=== PATIENT | female | born 1960 | race Caucasian/White ===

== ENCOUNTER 2021-01-15 15:06 | Outpatient (REF) | payer OTHER, SELFPAY ==
[2021-01-15 15:29] LABS: COVID-19 Test Positive (Negative)
== END 2021-01-15 15:07 | disposition home or self-care (01) ==
LOC: HO.LAB 15:06
PROVIDERS: Visit Provider Internal Medicine
DX: Z20.822 Contact with and (suspected) exposure to COVID-19 (principal)
CPT/HCPCS: 36415; 87635; C9803

== ENCOUNTER 2022-12-15 14:00 | Outpatient (RCR) | payer OTHER, SELFPAY ==
[2022-01-28 08:32] VITALS: BP 142/80; BP 150/70; BMI 32.0
[2022-11-26 07:04] VITALS: BP 143/67; PULSE 69; O2SAT 98
== END 2023-01-13 13:28 | disposition home or self-care (01) ==
LOC: HO.PT 14:00
PROVIDERS: PCP Physician Assistant; Visit Provider Physician Assistant
DX: I63.10 Cerebral infarction due to embolism of unspecified precerebral artery (principal); G81.94 Hemiplegia, unspecified affecting left nondominant side
CPT/HCPCS: 97110; 97112; 97116; 97162; 97530

== ENCOUNTER 2023-05-20 18:47 | Inpatient (IN) | payer MEDICAID, SELFPAY ==
[2022-01-28 08:32] VITALS: BP 142/80; BP 150/70; BMI 32.0
--- NOTE | ~2023-05-20 | MR_ITS ---
EXAMINATION: MRI OF THE BRAIN WITHOUT CONTRAST CLINICAL INFORMATION: Stroke. COMPARISON: CTA of the head and neck 05/20/2023. TECHNIQUE: MRI of the brain was obtained using routine sequences without contrast. Some sequences are degraded by patient motion artifact. FINDINGS: There is an area of increased diffusion signal adjacent to the posterior body of the right lateral ventricle which has surrounding hyperintense ADC map and T2 signal, consistent with a subacute to chronic infarct. There is similar signal in the right precentral gyrus. A large area of gliosis and encephalomalacia is noted in the right periventricular white matter and in the right frontoparietal lobes, consistent with sequelae of a chronic infarct. No mass effect or midline shift is seen. The ventricles and sulci commensurately prominent consistent with diffuse volume loss. There is an area of gliosis in the posteromedial left occipital lobe consistent with sequelae of a chronic infarct. In addition, there are multiple scattered foci of hyperintense T2 and FLAIR signal in the periventricular and subcortical white matter, and in the shelbi consistent with sequelae of chronic microvascular ischemic disease. There are chronic infarcts in the bilateral cerebellar hemispheres. No extra-axial fluid collections are seen. The brainstem and cerebellum are normal. No pathologic magnetic susceptibility artifact is identified on the severely motion degraded gradient refocused acquisition. The craniovertebral junction and marrow signal are normal. There is a partially empty sella. The major intracranial flow-voids at the level of the [place] are preserved. The dural venous sinus flow-voids are maintained. There have been bilateral lens extractions. The mastoid air cells and paranasal sinuses are well-aerated. MR/MR head/brain wo con IMPRESSION: 1. There are sequelae of subacute to chronic infarcts in the right periventricular white matter and precentral gyrus as described above. There is diffuse volume loss and there are sequelae of chronic microvascular ischemic changes. There are chronic infarcts in the left occipital lobe and in the bilateral cerebellar hemispheres. 2. There are no acute bleeds or new territorial infarcts. No masses are demonstrated.
--- NOTE | ~2023-05-20 | CT_ITS ---
EXAMINATION: CT ANGIOGRAM HEAD CT ANGIOGRAM NECK CLINICAL INFORMATION: Right-sided facial droop. Left-sided weakness. COMPARISON: CT head from 05/20/2023. TECHNIQUE: Initial noncontrast chief controller imaging of the head and neck was performed. Comparison is made with noncontrast head CT from earlier today. Test bolus sequences followed by intravenous administration 70 mL of Omnipaque 350. Helical imaging was performed in the axial plane from the aortic arch to the skull vertex. Delayed postcontrast imaging of the head was also performed. The data was processed at the agricultural research technologist's workstation for generation of MIP sequences. Angled MIPs and volume rendered reformatted images were also generated at an offline 3D workstation. Stenoses are assessed in accordance with NASCET criteria unless otherwise indicated. This CT examination was performed using dose optimization techniques as appropriate, variously including the following: *Automated exposure control. *Adjustment of mA and/or kV according to patient size (this includes techniques or standardized protocols for targeted exams where dose is matched to indication/reason for exam; i.e. extremities or head). *Use of iterative reconstruction technique. DLP: 1432 mGy-cm FINDINGS: CT Head: There is chronic encephalomalacia within the right parietal lobe with associated volume loss. No additional loss of hamm-white matter differentiation. No evidence of acute intracranial hemorrhage. Lacunar infarct of the left central shelbi. Scattered and partially confluent hypoattenuation in the periventricular, deep white matter, and brainstem are consistent with moderate microangiopathy. The ventricles are normal in morphology and size. No evidence for obstructive hydrocephalus. No abnormal mass effect or midline shift. No extra-axial fluid collections. No pathologic intra-axial enhancement. No acute soft tissue or osseous abnormalities. Mild mucosal thickening of the paranasal sinuses. The mastoid air cells and middle ear cavities are clear. The maxillary left 2nd molar is fractured with periapical lucency. Bilateral lens extractions. CT Neck: The thyroid gland and remaining cervical soft tissues are within normal limits. [id number] multilevel degenerative spinal arthropathy of the cervical spine. CT Upper Chest: Loop recorder noted within the left anterior chest wall. The visualized lung apices and upper mediastinum are within normal limits. Neck CTA: Moderately motion limited exam. Aortic Arch: Normal contour and caliber with moderate calcific atherosclerotic disease. Classic 3 vessel branching pattern of the aortic arch. Great Vessel Origins: No significant stenosis of the branch origins. Right Common Carotid Artery: No focal stenosis or occlusion. Cervical Right Internal Carotid Artery: Calcific atherosclerotic disease of the carotid bulb and proximal internal carotid artery causes 70% stenosis of the origin of the ICA. Left Common Carotid Artery: No focal stenosis or occlusion. Cervical Left Internal Carotid Artery: Calcific atherosclerotic disease of the carotid bulb and proximal internal carotid artery causes 50% stenosis of the proximal ICA. Cervical Right Vertebral Artery: Co-dominant. Calcific atherosclerotic disease causes moderate stenosis of the origin. No additional focal stenosis or occlusion. Cervical Left Vertebral Artery: Co-dominant. Calcific atherosclerotic disease causes moderate stenosis of the origin. No additional focal stenosis or occlusion. Brain CTA: Intracranial Internal Carotid Arteries: Heavy calcific atherosclerotic disease of the intracranial internal carotid arteries without occlusion. There are mild to moderate stenosis of the para ophthalmic and super clinoid segments of the ICAs bilaterally. Right Anterior Cerebral Artery: Normal A1 segment. Normal opacification of the distal [place] segments. Left Anterior Cerebral Artery: Normal A1 segment. Normal opacification of the distal [place] segments. Anterior Communicating Artery: Normal. Right Middle Cerebral Artery: Normal M1 segment of the MCA without focal stenosis or occlusion. Normal arborization of the distal segments. Left Middle Cerebral Artery: Normal M1 segment of the MCA without focal stenosis or occlusion. Normal arborization of the distal segments. Right Vertebral Artery: Calcific atherosclerotic disease of the V4 segment without evidence of flow-limiting stenosis. The posterior inferior cerebellar artery is not well opacified; however, there is no CT evidence of acute occlusion. Left Vertebral Artery: Calcific atherosclerotic disease of the V4 segment without evidence of flow-limiting stenosis. Normal opacification of the proximal segments of the posterior inferior cerebellar artery. Basilar Artery: Normal without focal stenosis or occlusion. Normal appearance of the proximal superior cerebellar arteries. Right Posterior Cerebral Artery: Normal P1 segment. Normal opacification of the distal MEDIA AID segments. Left Posterior Cerebral Artery: Normal P1 segment. Normal opacification of the distal [employer] AID segments. Normal opacification of the superior sagittal, straight, transverse, and sigmoid sinuses. CT/CT angio head neck stroke IMPRESSION: 1. Chronic encephalomalacia within the right parietal lobe. Lacunar infarct of the left central shelbi. Moderate to extensive underlying microangiopathy and generalized cerebral volume loss. 2. No evidence of acute intracranial hemorrhage or edematous territorial infarction. 3. CTA of the head and neck without proximal occlusion. 4. Calcific atherosclerotic disease causes 70% stenosis of the origin of the right ICA. There is 50% stenosis of the origin of the left ICA. Mild to moderate calcific atherosclerotic disease of the intracranial internal carotid arteries bilaterally without evidence of additional flow-limiting stenosis. Moderate atherosclerotic stenoses of the origins of the vertebral arteries bilaterally.
--- NOTE | ~2023-05-20 | CT_ITS ---
EXAMINATION: CT HEAD WITHOUT CONTRAST CLINICAL INFORMATION: CVA. COMPARISON: CT head 12/27/2018. TECHNIQUE: Contiguous axial imaging was performed from the skull base to vertex without intravenous administration of contrast. This CT examination was performed using dose optimization techniques as appropriate, variously including the following: *Automated exposure control *Adjustment of mA and/or kV according to patient size (this includes techniques or standardized protocols for targeted exams where dose is matched to indication/reason for exam; i.e. extremities or head) *Use of iterative reconstruction technique DLP: 641 mGy-cm FINDINGS: Multiple age indeterminate hypodensities that are new compared to 12/27/2018, largest in the high right parietal lobe posterior to the central sulcus and left paramedian occipital lobe (5:39). There is suggestion of volume loss associated to the largest hypodensity in the high parietal lobe, which could indicate a chronic age. Smaller age indeterminate hypodensities in the mid shelbi (5:58) and bilateral basal ganglia No acute intracranial hemorrhage. No significant mass effect or midline shift. Small indeterminate calcifications in the region of the largest hypodensity in the parietal lobe (2:30 and 2:33), right temporal lobe (2:20) as well as subtle mineralization of the right greater than left basal ganglia. Scattered hypoattenuation in the periventricular and deep white matter are consistent with moderate microangiopathy. Proportional prominence of the ventricles and sulcal spaces. No evidence for obstructive hydrocephalus. No extra-axial fluid collections. No acute soft tissue or osseous abnormalities. Mild mucosal thickening of the left maxillary sinus. No air-fluid levels. The mastoids and middle ear cavities are clear. Bilateral lens extraction. CT/CT head for stroke IMPRESSION: 1. Multiple age indeterminate hypodensities that are new compared to 12/27/2018, largest in the high right parietal lobe and left paramedian occipital lobe. Smaller age indeterminate hypodensities in the mid shelbi and bilateral basal ganglia. Recommend further characterization with an MRI of the brain. 2. No acute intracranial hemorrhage. 3. No midline shift or evidence of obstructive hydrocephalus. 4. Background of moderate microangiopathy and generalized cerebral volume loss. This critical result was discussed with Dr. Stafford at 05/20/2023 7:21 PM and it was ascertained that the content and urgency of the report was understood at the time of direct communication.
--- NOTE | 2023-05-20 18:51 | ECG_ITS ---
Test Reason : STROKE Blood Pressure : / mmHG Vent. Rate : 088 BPM Atrial Rate : 088 BPM P-R Int : 148 ms QRS Dur : 092 ms QT Int : 370 ms P-R-T Axes : 029 018 121 degrees QTc Int : 447 ms Normal sinus rhythm Minimal voltage criteria for LVH, may be normal variant ( Eliezer product ) ST & T wave abnormality, consider lateral ischemia Abnormal ECG When compared with ECG of 23-SEP-2019 19:56, No significant change was found Referred By: Raulito Stafford Electronically Signed By:MICHAELA THAPA
--- NOTE | 2023-05-20 18:56 | ED_ITS ---
HPI - Neuro Symptoms/Deficit General Chief Complaint: Stroke Stated Complaint: L side face deficit, R side droop, dizzy Time Seen by Provider: 05/20/23 18:50 Source: patient and EMS Mode of arrival: EMS Limitations: no limitations History of Present Illness HPI Narrative: 63-year-old female with history of CVA on Coumadin typically receives her care [facility] presents with acute onset right facial droop and left-sided weakness. She does have a history of 2 previous strokes. With unclear whether she has some chronic deficits from that. Her daughter did noted at 6:10 p.m. new neuro deficits appear. At that time, EMS was contacted. Upon arrival, she is found to be hemodynamically stable with a blood sugar of 175. She was noted to have a left upper extremity tremor, left upper and lower extremity weakness and right facial droop. Patient has no evidence of aphasia. Her symptoms are described as severe. There is no clear relieving or exacerbating features. Patient denies any chest pain, shortness breath, palpitations or headaches. She does take Coumadin but she is not entirely clear why she is on Coumadin at this time. Related Data Home Medications Medication Instructions Recorded Confirmed aspirin 81 mg tablet,delayed 81 mg PO DAILY 05/20/23 release atorvastatin 80 mg tablet 80 mg PO 3XW 05/20/23 budesonide-formoterol HFA 160 2 puff inhalation BID 05/20/23 mcg-4.5 mcg/actuation aerosol inhaler (Symbicort) calcitriol 0.5 mcg capsule 0.5 mcg PO 3XW 05/20/23 carvedilol 25 mg tablet 25 mg PO BID 05/20/23 cinacalcet 30 mg tablet mg PO 05/20/23 ergocalciferol (vitamin D2) 1,250 1,250 mcg PO QWEEK 05/20/23 mcg (50,000 unit) capsule insulin glargine 100 unit/mL (3 unit subcut 05/20/23 mL) subcutaneous pen (Lantus Solostar U-100 Insulin) isosorbide mononitrate 30 mg 90 mg PO DAILY 05/20/23 tablet,extended release 24 hr liraglutide 0.6 mg/0.1 mL (18 mg/3 mg subcut 05/20/23 mL) subcutaneous pen injector (Flintotoza 2-Freddie) nifedipine 60 mg tablet,extended 60 mg PO BID 05/20/23 release pantoprazole 20 mg tablet,delayed 20 mg PO QAM 05/20/23 release sennosides 8.6 mg tablet (senna) 8.6 mg PO DAILY PRN Constipation 05/20/23 torsemide 20 mg tablet 20 mg PO BID 05/20/23 trazodone 100 mg tablet 100 mg PO BEDTIME PRN insomnia 05/20/23 warfarin 2.5 mg tablet 2.5 mg PO DAILY 05/20/23 Allergies Allergy/AdvReac Type Severity Reaction Status Date / Time No Known Allergies Allergy Mild NONE Unverified 06/14/20 16:40 Review of Systems Review of Systems: CONSTITUTIONAL: Denies weight loss, fever and chills. HEENT: Denies changes in vision and hearing. RESPIRATORY: Denies SOB and cough. CV: Denies palpitations no CP. GI: Denies abdominal pain, nausea, vomiting and diarrhea. : Denies dysuria and urinary frequency. MSK: Denies myalgia and joint pain. SKIN: Denies rash and pruritus. NEUROLOGICAL: Denies headache and syncope. PSYCHIATRIC: Denies recent changes in mood. Denies anxiety and depression. All other ROS are negative unless in HPI [facility] Social History Social History Alcohol intake: never Patient Tobacco Use Status: Former Tobacco user Smoked in Last 30 Days: No Use of substances other than those prescribed or required for medical reasons: No Advance Directives: No Advance Directives Information Provided: No Patient : No Physical Exam Vital Signs: Vital Signs: Last Vital Signs Temp 98.3 F 05/20/23 20:04 Pulse 85 05/20/23 21:39 Resp 12 05/20/23 21:39 BP 169/59 H 05/20/23 21:39 Pulse Ox 100 05/20/23 21:39 O2 Del Method Room Air 05/20/23 21:39 BMI result Body Mass Index 29.6 GEN: Well developed, no acute distress, alert, oriented HEENT: Normocephalic, atraumatic, normal external ears, nose appears normal, no oropharyngeal edema or exudates Eyes: Normal to appearance Neck: Supple, no lymphadenopathy Respiratory: Talks in complete sentences, no respiratory distress, clear to auscultation bilaterally Cardiovascular: Regular rate and rhythm, no murmurs rubs or gallops Abdomen: Soft, nontender, nondistended, no guarding, no rebound Back: No CVA tenderness Extremities: No clubbing cyanosis or edema Neurologic: Right facial droop, left upper and lower extremity weakness, left upper extremity tremor /coarse tremor Skin: No rash Course Reevaluation(s) Reevaluation #1: patient is on the CT scan table, she is starting to have generalized tremulous movements psych could be consistent with a partial tremulous seizure. Will give Ativan 2 mg IV. Time: 19:02 Reevaluation #2: Patient developed a generalized tonic clonic seizure shortly after my most recent evaluation. Time: 19:11 Reevaluation #3: spoke with Dr. Tovar, Nephrology recommending 3% saline 75 cc over 2 hours to slightly increase her sodium level. Some he is not clear whether we do peritoneal dialysis here and have the staff 10 to this. She may require transfer to a higher level of care. Will contact our nurse coating mixer supervisor to see if we have the availability to do so. Time: 21:39 Consultations Consultation #1: Neurology Consultation #2: ICU, hospitalist Time: 21:22 Medications Administered Discontinued Medications Generic Name Dose Route Start Last Admin Trade Name Freq PRN Reason Stop Dose Admin Levetiracetam 1,000 mg in 100 mls @ 400 mls/hr 05/20/23 21:15 05/20/23 21:38 Keppra IV 05/20/23 21:29 Infused ONCE ONE Infusion Iohexol 100 ml 05/20/23 19:27 05/20/23 19:27 Iohexol 350 Mg/Ml 100 Ml Infus..Btl IV 05/20/23 19:28 70 ml ONCE ONE Administration Lorazepam 2 mg 05/20/23 19:02 05/20/23 19:17 Lorazepam 2 Mg/Ml Vial IVPUSH 05/20/23 19:03 2 mg ONCE ONE Administration Medical Decision Making Medical Decision Making MDM Narrative: patient presents with new neuro deficits. Patient is on Coumadin. She has right facial weakness in left upper sided weakness. Will obtain a CT, CT angiogram of the head and neck. Patient is on peritoneal dialysis as well. Differential diagnosis includes TIA, stroke, intracranial bleeding, acute on chronic kidney related issues, infection. Plan will be to obtain imaging studies, laboratory analysis, re-evaluate patient. Patient may not be a tPA candidate given the fact that she is on Coumadin. Differential Diagnosis Differential Diagnoses: The differential diagnosis associated with the presentation includes ( See above) Admission/Observation Consideration of admission/observation: Escalation of care including admission/observation considered Consult Healthcare Provider Management of the patient was discussed with: Hospitalist and Public Affairs Director Lab Data MDM Lab Attestation statement: I reviewed the patient's lab results. 05/20/23 18:57 05/20/23 18:57 Labs: Lab Results 05/20/23 05/20/23 05/20/23 Range/Units 18:57 18:57 18:57 WBC 7.1 (4.8-10.8) X10*3/uL RBC 3.52 L (4.20-5.50) X10*6/uL Hgb 10.7 L (12.0-16.0) g/dl Hct 29.9 L (37.0-47.0) % MCV 84.9 (80.0-98.0) fL MCH 30.4 (27.0-33.0) pg MCHC 35.8 H (31.0-35.0) g/dl RDW 11.8 (11.0-16.0) % Plt Count 224 (160-400) X10*3/uL MPV 11.5 (9.4-12.3) fL Immature Gran % (Auto) 0.6 H (0.0-0.4) % Neut % (Auto) 68.2 (45-73) % Lymph % (Auto) 18.9 L (20-40) % [place] % (Auto) 9.5 (2-11) % Eos % (Auto) 2.2 (0-4) % Baso % (Auto) 0.6 (0-2) % Lymph # (Auto) 1.4 (1.2-4.9) X10*3/uL [place] # (Auto) 0.7 (0.1-1.2) X10*3/uL Eos # (Auto) 0.2 (0.0-0.4) X10*3/uL Baso # (Auto) 0.0 (0.0-0.2) X10*3/uL Abs Immat Gran (auto) 0.04 H (0.00-0.03) X10*3/uL Absolute Neuts (auto) 4.9 (2.0-8.3) x10*3/uL Absolute Nucleated RBC 0.000 (0.0-0.012) X10*3/uL Nucleated RBC % (auto) 0.0 (0.0-0.2) /100WBC PT 34.4 H (11.1-13.3) SEC INR 2.8 H (0.9-1.1) APTT 42.2 H (26.0-36.4) SEC Sodium 126 L (135-145) mmol/L Potassium 4.4 (3.3-5.1) mmol/L Chloride 100 (96-108) mmol/L Carbon Dioxide 19 L (22-29) mmol/L Anion Gap 11 L (12-20) BUN 31 H (9-16) mg/dL Creatinine 3.10 H (0.5-1.4) mg/dL Estim Creat Clear Calc TNP Estimated GFR 15 Random Glucose 157 H (60-115) mg/dL Calcium 8.7 (8.4-10.2) mg/dL Phosphorus 3.8 (2.7-4.5) mg/dL Magnesium 1.9 (1.6-2.6) mg/dL 05/20/23 Range/Units 20:03 WBC (4.8-10.8) X10*3/uL RBC (4.20-5.50) X10*6/uL Hgb (12.0-16.0) g/dl Hct (37.0-47.0) % MCV (80.0-98.0) fL MCH (27.0-33.0) pg MCHC (31.0-35.0) g/dl RDW (11.0-16.0) % Plt Count (160-400) X10*3/uL MPV (9.4-12.3) fL Immature Gran % (Auto) (0.0-0.4) % Neut % (Auto) (45-73) % Lymph % (Auto) (20-40) % [place] % (Auto) (2-11) % Eos % (Auto) (0-4) % Baso % (Auto) (0-2) % Lymph # (Auto) (1.2-4.9) X10*3/uL [place] # (Auto) (0.1-1.2) X10*3/uL Eos # (Auto) (0.0-0.4) X10*3/uL Baso # (Auto) (0.0-0.2) X10*3/uL Abs Immat Gran (auto) (0.00-0.03) X10*3/uL Absolute Neuts (auto) (2.0-8.3) x10*3/uL Absolute Nucleated RBC (0.0-0.012) X10*3/uL Nucleated RBC % (auto) (0.0-0.2) /100WBC PT (11.1-13.3) SEC INR (0.9-1.1) APTT (26.0-36.4) SEC Sodium (135-145) mmol/L Potassium (3.3-5.1) mmol/L Chloride (96-108) mmol/L Carbon Dioxide (22-29) mmol/L Anion Gap (12-20) BUN (9-16) mg/dL Creatinine (0.5-1.4) mg/dL Estim Creat Clear Calc Estimated GFR Random Glucose 182 H (60-115) mg/dL Calcium (8.4-10.2) mg/dL Phosphorus (2.7-4.5) mg/dL Magnesium (1.6-2.6) mg/dL Independent Interpretation I performed an independent interpretation of an: EKG ( Normal sinus rhythm heart rate 88, tremulous baseline, no acute ST elevations or depressions, difficult to assess but no obvious acute ischemic changes), Rhythm Strip and CT Scan Radiology Impression Discussion of test interpretation with radiology: I have reviewed the radiologist's reading. Independent Historian Clinical information obtained from an independent historian. History obtained from or confirmed by: Other (Daughter) CT/CT angio head? neck stroke IMPRESSION: 1.? Chronic encephalomalacia within the right parietal lobe. Lacunar infarct of the left central shelbi. Moderate to extensive underlying microangiopathy and generalized cerebral volume loss. 2.? No evidence of acute intracranial hemorrhage or edematous territorial infarction. 3.? CTA of the head and neck without proximal occlusion. 4.? Calcific atherosclerotic disease causes 70% stenosis of the origin of the right ICA. There is 50% stenosis of the origin of the left ICA. Mild to moderate calcific atherosclerotic disease of the intracranial internal carotid arteries bilaterally without evidence of additional flow-limiting stenosis. Moderate atherosclerotic stenoses of the origins of the vertebral arteries bilaterally. ? Dictated By: Huey Goldman DO Signed By: <Electronically signed by Huey Goldman DO in [place]> 05/20/232035 CT/CT head for stroke IMPRESSION: 1.? Multiple age indeterminate hypodensities that are new compared to 12/27/2018, largest in the high right parietal lobe and left paramedian occipital lobe. Smaller age indeterminate hypodensities in the mid shelbi and bilateral basal ganglia. Recommend further characterization with an MRI of the brain. 2.? No acute intracranial hemorrhage. 3.? No midline shift or evidence of obstructive hydrocephalus. 4.? Background of moderate microangiopathy and generalized cerebral volume loss. ? This critical result was discussed with Dr. Stafford at 05/20/2023 7:21 PM and it was ascertained that the content and urgency of the report was understood at the time of direct communication. ? Dictated By: Kathy Monson Signed By: <Electronically signed by Kathy? Ermias in [place]> 05/20/231923 Prescription Management I considered prescription management with: Other (Seizure Meds) Chronic Conditions Patient?s care impacted by: Other (esrd) NIH Stroke Scale Internal: Initial- Upon Arrival Time: 18:52 Level of Consciousness: Alert Level of Consciousness Questions: Answers both questions correctly Level of Consciousness Commands: Performs both tasks correctly Best Gaze: Normal Visual: No visual loss Facial Palsy: Partial paralysis Motor Arm (Right): No drift Motor Arm (Left): Drift Motor Leg (Right): No drift Motor Leg (Left): Drift Limb Ataxia: Present in one limb Sensory: Normal Best Language: No aphasia Dysarthia: Normal Extinction and Inattention: No abnormality Score: 5 Critical Care Time Critical Care Time Critical Care Time: Yes Total Critical Care Time: 80 Attestation: Due to a high probability of clinically significant, life threatening deterioration, the patient required my highest level of preparedness to intervene emergently and I personally spent this critical care time directly and personally managing the patient. This critical care time included obtaining a history; examining the patient; pulse oximetry; ordering and review of studies; arranging urgent treatment with development of a management plan; evaluation of patient's response to treatment; frequent reassessment; and, discussions with other providers. This critical care time was performed to assess and manage the high probability of imminent, life-threatening deterioration that could result in multi-organ failure. It was exclusive of separately billable procedures and treating other patients and teaching time. Discharge Plan Discharge Clinical Impression: New onset seizure, Acute hyponatremia, ESRD on peritoneal dialysis, History of CVA (cerebrovascular accident) Patient Disposition: Admitted As Inpatient Prescriptions: No Action atorvastatin 80 mg tablet 80 mg PO 3XW carvedilol 25 mg tablet 25 mg PO BID sennosides [senna] 8.6 mg tablet 8.6 mg PO DAILY PRN (Reason: Constipation) torsemide 20 mg tablet 20 mg PO BID isosorbide mononitrate 30 mg tablet extended release 24 hr 90 mg PO DAILY warfarin 2.5 mg tablet 2.5 mg PO DAILY aspirin 81 mg tablet,delayed release (DR/EC) 81 mg PO DAILY pantoprazole 20 mg tablet,delayed release (DR/EC) 20 mg PO QAM trazodone 100 mg tablet 100 mg PO BEDTIME PRN (Reason: insomnia) calcitriol 0.5 mcg capsule 0.5 mcg PO 3XW ergocalciferol (vitamin D2) 1,250 mcg (50,000 unit) capsule 1,250 mcg PO QWEEK nifedipine 60 mg tablet extended release 60 mg PO BID cinacalcet 30 mg tablet PO budesonide-formoterol [Symbicort] 160-4.5 mcg/actuation HFA aerosol inhaler 2 puff inhalation BID insulin glargine [Lantus Solostar U-100 Insulin] 100 unit/mL (3 mL) insulin pen subcut Victoza 2-Freddie 0.6 mg/0.1 mL (18 mg/3 mL) pen injector subcut
[2023-05-20 19:00] LABS: MANUAL DIFF FLAG NO
[2023-05-20 19:04] LABS: Basophils Percent Auto 0.6 % (0-2); Eosinophils Absolute Auto 0.2 X10*3/uL (0.0-0.4); Eosinophils Percent Auto 2.2 % (0-4); Hematocrit 29.9 % (37.0-47.0); Hemoglobin 10.7 g/dl (12.0-16.0); Imm Gran Abs Auto 0.04 X10*3/uL (0.00-0.03); Imm Gran Pct Auto 0.6 % (0.0-0.4); Lymphocytes Absolute Auto 1.4 X10*3/uL (1.2-4.9); Lymphocytes Percent Auto 18.9 % (20-40); Mean Corpuscular HGB Conc 35.8 g/dl (31.0-35.0); Mean Corpuscular Hemoglobin 30.4 pg (27.0-33.0); Mean Corpuscular Volume 84.9 fL (80.0-98.0); Mean Platelet Volume 11.5 fL (9.4-12.3); Monocytes Absolute Auto 0.7 X10*3/uL (0.1-1.2); Monocytes Percent Auto 9.5 % (2-11); Neutrophils Absolute Auto 4.9 x10*3/uL (2.0-8.3); Neutrophils Percent Auto 68.2 % (45-73); Platelet Count 224 X10*3/uL (160-400); Red Blood Count 3.52 X10*6/uL (4.20-5.50); Red Cell Distribution Width 11.8 % (11.0-16.0); White Blood Count 7.1 X10*3/uL (4.8-10.8)
[2023-05-20 19:10] LABS: INTERNATIONAL NORM RATIO 2.8 (0.9-1.1); Prothrombin Time 34.4 SEC (11.1-13.3)
[2023-05-20 19:13] LABS: Partial Thromboplastin Time 42.2 SEC (26.0-36.4)
[2023-05-20 19:15] LABS: Anion Gap 11 (12-20); Blood Urea Nitrogen 31 mg/dL (9-16); Calcium 8.7 mg/dL (8.4-10.2); Carbon Dioxide 19 mmol/L (22-29); Chloride 100 mmol/L (96-108); Estimated Glomerular Filt Rate 15; Glucose Random 157 mg/dL (60-115); Magnesium 1.9 mg/dL (1.6-2.6); Phosphorus 3.8 mg/dL (2.7-4.5); Potassium 4.4 mmol/L (3.3-5.1); Sodium 126 mmol/L (135-145)
[2023-05-20] MEDS: LORazepam 2 MG/ML VIAL IVPUSH (19:17)
[2023-05-20 19:21] LABS: Stroke Lab Use COMPLETE
[2023-05-20] MEDS: iohexoL 350 MG/ML 100 ML INFUS..BTL IV (19:27)
[2023-05-20 19:32] VITALS: BP 196/88; BP 96/57; PULSE 87; PULSE 96; RESP 12; O2SAT 100; O2SAT 97; BMI 29.6
[2023-05-20 19:47] VITALS: BP 191/58
--- NOTE | 2023-05-20 19:53 | PC.NURSE ---
At 1900 pt had seizure like activity while on ct-scan table, medicated with 2mg of ativan ivp
--- NOTE | 2023-05-20 19:55 | PC.NURSE ---
pt b/p 191/58 Dr. Stafford aware
[2023-05-20 20:04] VITALS: BP 171/65; PULSE 90; RESP 14; TEMP 36.8; O2SAT 98
[2023-05-20 20:16] LABS: Glucose Random 182 mg/dL (60-115)
--- NOTE | 2023-05-20 20:20 | PC.NURSE ---
facial droop has resolved
[2023-05-20 20:41] VITALS: BP 181/56; PULSE 87; RESP 16; O2SAT 99
[2023-05-20] MEDS: levETIRAcetam in NaCl (iso-os) 1,000 MG/100 ML PIGGYBACK 400 MG IV (21:14)
[2023-05-20 21:39] VITALS: BP 169/59; PULSE 85; RESP 12; O2SAT 100
--- NOTE | 2023-05-20 21:51 | PC.NURSE ---
pt tolerated iv keppra, pt responding to family
--- NOTE | 2023-05-20 22:30 | PC.NURSE ---
pt daughter (Jose) number [phone]
--- NOTE | 2023-05-20 22:32 | PHA.MEDREC ---
Addendum entered by Dorothy Kingsley RPh 05/21/23 10:00: Christian spoke to daughter and reviewed claim history to confirm victoza dosing Original Note: Pharmacy Consult ? Medication Reconciliation Pharmacy has completed the medication reconciliation. Patient's daughter confirmed medications. She was able to recognize all the medicaitons. Said she will bring in list tomorrow to make sure none of the medication were missed. Shelby Liu, ShrutiD
--- NOTE | 2023-05-20 22:35 | PM.IMHP ---
History of Present Illness Date of Service: 05/20/23 Chief Complaint: left-sided weakness, slurred speech 63-year-old female with past medical history of chronic hep C recently diagnosed liver cancer, end-stage renal disease status post peritoneal dialysis every other day at home, history of CVA in the past, diabetes, GERD, HLD, hypothyroidism, lupus, normocytic anemia, uncontrolled hypertension comes into the hospital brought in by EMS for left-sided weakness, slurred speech and facial droop. Patient is awake, oriented to self and place, daughter and son at bedside. Patient states that around 18:00 she started developing right-sided facial droop, significant left-sided headache behind her left ear,difficulty speaking, she also developed left upper extremity weakness. She called her daughter, daughter says that she was unable to understand her much, she went home and she was concerned about a stroke in called EMS. While in the ED patient experienced a tonic-clonic seizure, was given Ativan, and was slightly postictal for a period of time, but is now awake alert and able to give history. She otherwise denies any chest pain, no vision changes, no shortness of breath, no abdominal pain nausea vomiting, no diarrhea constipation, no urinary symptoms On arrival to the ED patient initially hypotensive but blood pressure has now increased significantly Labs are significant for WBC count of 7.1, hemoglobin of 10.7, hematocrit 29.9, INR of 2.8, sodium of 126, creatinine of 2.99 which is around her baseline, UA positive for leukocyte Estrace and WBC head CT shows multiple age indeterminate hypodensities that are new compared to 2019, largest in the high right parietal lobe and left paramedian occipital lobe, smaller age indeterminate hypodensities in the mid shelbi and bilateral basal ganglia no acute intracranial hemorrhage, no midline shift or evidence of obstructive hydrocephalus head and neck CT angiogram shows chronic encephalomalacia within the right parietal lobe, lacunar infarct of the left central shelbi, moderate to extensive underlying microangiopathy and generalized cerebral volume loss, no proximal occlusion, 70% stenosis of the origin of the right ICA patient will be admitted for further management Review of Systems Review of Systems: Yes all other systems are reviewed and are negative [facility] Medical History Chronic anemia Diabetes Embolic stroke Esophageal varices ESRD (end stage renal disease) H/O insulin dependent diabetes mellitus Heart failure with preserved ejection fraction Hepatitis C History of CAD (coronary artery disease) History of hypertrophic cardiomyopathy Hyperlipidemia Hypothyroidism Liver cancer Liver cirrhosis Lupus anticoagulant positive Peritoneal dialysis catheter in place Uncontrolled hypertension Social History Alcohol intake: never Patient Tobacco Use Status: Former Tobacco user Smoked in Last 30 Days: No Use of substances other than those prescribed or required for medical reasons: No Advance Directives: No Advance Directives Information Provided: No Patient : No Meds Allergies Allergy/AdvReac Type Severity Reaction Status Date / Time No Known Allergies Allergy Mild NONE Unverified 06/14/20 16:40 Active Medications: Current Medications Sodium Chloride (Sodium Chloride 3 %) 70 mls @ 35 mls/hr IV ONCE ONE Stop: 05/20/23 23:38 Last Admin: 05/20/23 22:26 Dose: 35 mls/hr Home Medications Medication Instructions Recorded Confirmed Last Taken Type aspirin 81 mg tablet,delayed 81 mg PO DAILY 05/20/23 05/20/23 Unknown History release atorvastatin 80 mg tablet 80 mg PO MOWEFR 05/20/23 05/20/23 Unknown History budesonide-formoterol HFA 160 2 puff inhalation BID 05/20/23 05/20/23 Unknown History mcg-4.5 mcg/actuation aerosol inhaler (Symbicort) calcitriol 0.5 mcg capsule 0.5 mcg PO MOWEFR 05/20/23 05/20/23 Unknown History carvedilol 25 mg tablet 25 mg PO BID 05/20/23 05/20/23 Unknown History cinacalcet 30 mg tablet 30 mg PO MOWEFR 05/20/23 05/20/23 Unknown History ergocalciferol (vitamin D2) 1,250 1,250 mcg PO MO 05/20/23 05/20/23 Unknown History mcg (50,000 unit) capsule insulin glargine 100 unit/mL (3 15 unit subcut BEDTIME 05/20/23 05/20/23 Unknown History mL) subcutaneous pen (Lantus Solostar U-100 Insulin) isosorbide mononitrate 30 mg 90 mg PO DAILY 05/20/23 05/20/23 Unknown History tablet,extended release 24 hr liraglutide 0.6 mg/0.1 mL (18 mg/3 mg subcut DAILY 05/20/23 Unknown History mL) subcutaneous pen injector ([employer] 2-Freddie) nifedipine 60 mg tablet,extended 60 mg PO BID 05/20/23 05/20/23 Unknown History release pantoprazole 20 mg tablet,delayed 20 mg PO QAM 05/20/23 05/20/23 Unknown History release sennosides 8.6 mg tablet (senna) 8.6 mg PO DAILY PRN Constipation 05/20/23 05/20/23 Unknown History torsemide 20 mg tablet 20 mg PO BID 05/20/23 05/20/23 Unknown History trazodone 100 mg tablet 100 mg PO BEDTIME PRN insomnia 05/20/23 05/20/23 Unknown History warfarin 2.5 mg tablet 7.5 mg PO SUMOTUTHFRSA 05/20/23 05/20/23 Unknown History warfarin 2.5 mg tablet 10 mg PO WE 05/20/23 05/20/23 Unknown History Physical Exam Vital Signs and Narrative: Vital Signs: Last Vital Signs Temp 98.3 F 05/20/23 20:04 Pulse 85 05/20/23 21:39 Resp 12 05/20/23 21:39 BP 169/59 H 05/20/23 21:39 Pulse Ox 100 05/20/23 21:39 O2 Del Method Room Air 05/20/23 21:39 BMI result Body Mass Index 29.6 Const: Other: somnolent but arousable, oriented to self place General: cooperative and no acute distress Eyes: General: appearance normal, both eyes and all related structures Resp: Effort & Inspection: normal respiratory effort Auscultation: clear to auscultation bilaterally Cardio: Rate: regular rate Rhythm: regular rhythm GI: Palpation (GI): Soft to palpation Auscultation: normal bowel sounds Skin: General skin exam: no rashes or lesions noted Neuro: Other: strength 3/5 in the left upper extremity and left lower extremity, abnormal cranial nerves 2-12, weakness on shoulder shrug on the left, has facial droop on the right, Extrem: General: Yes normal to inspection and Yes no pedal edema Results Labs 05/20/23 18:57 05/20/23 20:03 Labs: Laboratory Results - last 24 hr 05/20/23 05/20/23 05/20/23 18:57 18:57 18:57 MCV 84.9 MCH 30.4 MCHC 35.8 H RDW 11.8 Plt Count 224 MPV 11.5 Immature Gran % (Auto) 0.6 H Neut % (Auto) 68.2 Lymph % (Auto) 18.9 L [place] % (Auto) 9.5 Eos % (Auto) 2.2 Baso % (Auto) 0.6 Lymph # (Auto) 1.4 [place] # (Auto) 0.7 Eos # (Auto) 0.2 Baso # (Auto) 0.0 Abs Immat Gran (auto) 0.04 H Absolute Neuts (auto) 4.9 Absolute Nucleated RBC 0.000 Nucleated RBC % (auto) 0.0 PT 34.4 H INR 2.8 H APTT 42.2 H Anion Gap 11 L Estim Creat Clear Calc TNP Estimated GFR 15 Random Glucose 157 H Calcium 8.7 Phosphorus 3.8 Magnesium 1.9 05/20/23 20:03 MCV MCH MCHC RDW Plt Count MPV Immature Gran % (Auto) Neut % (Auto) Lymph % (Auto) [place] % (Auto) Eos % (Auto) Baso % (Auto) Lymph # (Auto) [place] # (Auto) Eos # (Auto) Baso # (Auto) Abs Immat Gran (auto) Absolute Neuts (auto) Absolute Nucleated RBC Nucleated RBC % (auto) PT INR APTT Anion Gap Estim Creat Clear Calc Estimated GFR Random Glucose 182 H Calcium Phosphorus Magnesium Imaging Radiologist's Impressions: Impressions Head CT 05/20/23 18:58 IMPRESSION: 1. Multiple age indeterminate hypodensities that are new compared to 12/27/2018, largest in the high right parietal lobe and left paramedian occipital lobe. Smaller age indeterminate hypodensities in the mid shelbi and bilateral basal ganglia. Recommend further characterization with an MRI of the brain. 2. No acute intracranial hemorrhage. 3. No midline shift or evidence of obstructive hydrocephalus. 4. Background of moderate microangiopathy and generalized cerebral volume loss. This critical result was discussed with Dr. Stafford at 05/20/2023 7:21 PM and it was ascertained that the content and urgency of the report was understood at the time of direct communication. Head/Neck CTA 05/20/23 19:26 IMPRESSION: 1. Chronic encephalomalacia within the right parietal lobe. Lacunar infarct of the left central shelbi. Moderate to extensive underlying microangiopathy and generalized cerebral volume loss. 2. No evidence of acute intracranial hemorrhage or edematous territorial infarction. 3. CTA of the head and neck without proximal occlusion. 4. Calcific atherosclerotic disease causes 70% stenosis of the origin of the right ICA. There is 50% stenosis of the origin of the left ICA. Mild to moderate calcific atherosclerotic disease of the intracranial internal carotid arteries bilaterally without evidence of additional flow-limiting stenosis. Moderate atherosclerotic stenoses of the origins of the vertebral arteries bilaterally. Assessment and Plan (1) Acute CVA (cerebrovascular accident): Status: Acute (2) New onset seizure: Status: Acute (3) Acute hyponatremia: Status: Acute (4) ESRD on peritoneal dialysis: Status: Acute (5) Acute UTI: Status: Acute (6) ICAO (internal carotid artery occlusion): Status: Acute Plan 63-year-old female with complex past medical history that includes hepatitis-C, liver cirrhosis, recently diagnosed liver cancer according to daughter, ESRD on PD, poorly controlled hypertension, insulin-dependent diabetes, with history of multifocal embolic strokes, CAD, HFpE, comes into the hospital with possible stroke, then developing seizure in the ED # acute CVA - has evidence of CVA on exam - abnormal head CT with multiple hypodensities, possibly new - will obtain MRI - continue high-dose statin, warfarin, as well as aspirin - neurology consulted - PT OT # new onset seizure - possibly multifactorial in the setting of underlying cranial vascular disease with history of multiple CVA as well as hyponatremia - patient responded to Ativan with no recurrence - neurology consulted - will obtain EEG # acute hyponatremia - likely in the setting of PD - patient given 3% NS 70cc per Nephrology with improvement in sodium - will continue NS0.9% - for OG consulted # 70% ICA occlusion - as seen on CTA - vascular surgery consulted # ESRD on PD - nephrology consulted, patient able to get PD in hospital # diabetes - low-dose sliding scale insulin, diabetic diet, home insulin # uncontrolled hypertension - will allow for some permissive hypertension, but patient's blood pressure in the 200s, will resume home antihypertensives - nephrology consulted # recent diagnosis of liver cancer - family were informed about 2 weeks ago that there is concern for liver cancer - follow-up outpatient # History of CHF with preserved ejection fraction - not in exacerbation - continue torsemide DVT prophylaxis: warfarin given patient's need for further evaluation of acute CVA, seizure disorder, acute hyponatremia, patient require minimum 2 nights inpatient hospital stay for further management monitoring Time Spent With Patient Time: Total time managing care of this patient today ____ minutes. Quality Stroke Does the patient have a stroke diagnosis?: No VTE Prior VTE?: No VTE Risk Level:: Medical - moderate - high VTE Device Contraindication: Treatment Not Indicated VTE Drug Contraindication: N/A - Med Ordered
--- NOTE | 2023-05-20 23:03 | PC.NURSE ---
Addendum entered by Meli Garcia RN 05/20/23 23:14: medicated with 975mg of tylenol po Original Note: pt c/o bilateral LE pain, Dr. Stafford aware
[2023-05-20] MEDS: Acetaminophen 325 MG TABLET 975 MG PO (23:10)
[2023-05-20 23:38] LABS: Anion Gap 11 (12-20); Blood Urea Nitrogen 31 mg/dL (9-16); Calcium 8.3 mg/dL (8.4-10.2); Carbon Dioxide 19 mmol/L (22-29); Chloride 100 mmol/L (96-108); Creatinine Clr Calc Pharmacy 18.5; Estimated Glomerular Filt Rate 16; Glucose Random 179 mg/dL (60-115); Potassium 4.4 mmol/L (3.3-5.1); Sodium 126 mmol/L (135-145)
[2023-05-21] VITALS (10 sets, daily range): BP systolic 154–229; BP diastolic 55–96; PULSE 69–81; RESP 13–18; TEMP 36.4–36.9; O2SAT 95–100
[2023-05-21 01:02] LABS: Anion Gap 11 (12-20); Blood Urea Nitrogen 31 mg/dL (9-16); Calcium 8.4 mg/dL (8.4-10.2); Carbon Dioxide 21 mmol/L (22-29); Chloride 100 mmol/L (96-108); Creatinine Clr Calc Pharmacy 18.1; Estimated Glomerular Filt Rate 16; Glucose Random 172 mg/dL (60-115); Potassium 4.3 mmol/L (3.3-5.1); Sodium 128 mmol/L (135-145)
--- NOTE | 2023-05-21 06:12 | PC.NURSE ---
pt b/p 229/66, denies any pain, Dr. Thrasher aware
[2023-05-21 06:14] LABS: Anion Gap 10 (12-20); Blood Urea Nitrogen 34 mg/dL (9-16); Calcium 8.4 mg/dL (8.4-10.2); Carbon Dioxide 21 mmol/L (22-29); Chloride 102 mmol/L (96-108); Creatinine Clr Calc Pharmacy 17.4; Estimated Glomerular Filt Rate 15; Glucose Random 114 mg/dL (60-115); Potassium 4.3 mmol/L (3.3-5.1); Sodium 129 mmol/L (135-145)
[2023-05-21 06:18] LABS: Cholesterol 157 mg/dL (<200); HDL Cholesterol 33 mg/dL (>40); LDL Cholesterol Calculated 101 mg/dL (<100); Triglycerides 115 mg/dL (<150)
[2023-05-21] MEDS: hydrALAZINE HCl 20 MG/ML VIAL 10 MG IVPUSH (06:21)
[2023-05-21 06:26] LABS: MANUAL DIFF FLAG NO
[2023-05-21 06:30] LABS: Appearance Urine Cloudy; Color Urine Yellow; Glucose Urine UA Negative (Negative); Leukocyte Esterase Urine Moderate (2+) (Negative); Nitrite Urine Negative (Negative); PH 6.5 (5.0-9.0); Specific Gravity - Urine 1.015 (1.005-1.025); UMIC TRIGGER UACC YES; Urine Blood Negative (Negative); Urine Ketones Negative (Negative); Urine Protein 100 (2+) mg/dL (Neg-Trace)
[2023-05-21 06:31] LABS: Bacteria Urine 4+ (None Seen); Hyaline Casts Urine 0-2 /LPF (0-2); Squamous Epithelial Cell Urine 0-2 /HPF (0-2); UACC Culture Trigger YES
[2023-05-21 06:33] LABS: Basophils Percent Auto 0.3 % (0-2); Eosinophils Absolute Auto 0.1 X10*3/uL (0.0-0.4); Eosinophils Percent Auto 1.7 % (0-4); Hematocrit 28.9 % (37.0-47.0); Hemoglobin 10.2 g/dl (12.0-16.0); Imm Gran Abs Auto 0.02 X10*3/uL (0.00-0.03); Imm Gran Pct Auto 0.3 % (0.0-0.4); Lymphocytes Absolute Auto 1.1 X10*3/uL (1.2-4.9); Lymphocytes Percent Auto 19.2 % (20-40); Mean Corpuscular HGB Conc 35.3 g/dl (31.0-35.0); Mean Corpuscular Hemoglobin 30.2 pg (27.0-33.0); Mean Corpuscular Volume 85.5 fL (80.0-98.0); Mean Platelet Volume 11.7 fL (9.4-12.3); Monocytes Absolute Auto 0.5 X10*3/uL (0.1-1.2); Monocytes Percent Auto 9.4 % (2-11); Neutrophils Percent Auto 69.1 % (45-73); Platelet Count 162 X10*3/uL (160-400); Red Blood Count 3.38 X10*6/uL (4.20-5.50); Red Cell Distribution Width 11.6 % (11.0-16.0); White Blood Count 5.8 X10*3/uL (4.8-10.8)
[2023-05-21 06:59] LABS: Glucose, Whole Blood 157 mg/dL (60-115)
[2023-05-21 07:01] LABS: Glucose, Whole Blood 104 mg/dL (60-115)
--- NOTE | 2023-05-21 07:40 | PC.NURSE ---
PT SEEN BY WINSTON MORIN (ÓSCAR), PT AWARE OF PLAN OF CARE.
[2023-05-21] MEDS: Torsemide 20 MG TABLET PO (07:42)
[2023-05-21] MEDS: Isosorbide Mononitrate 30 MG TAB.ER.24H 90 MG PO (07:42)
[2023-05-21] MEDS: carvediloL 25 MG TABLET PO (07:42)
[2023-05-21] MEDS: Aspirin Enteric Coated 81 MG TABLET.DR PO (07:42)
[2023-05-21] MEDS: cefTRIAXone sodium 1 GM in 0.9 % Sodium Chloride 50 ML IV (07:43)
[2023-05-21] MEDS: 0.9 % Sodium Chloride 1,000 ML 80 ML IVCONT (07:44)
--- NOTE | 2023-05-21 07:45 | PC.NURSE ---
PT IS A/O X 3 NO SOB/JESSICA NOTED SPEAKS IN FULL SENTENCES. R SIDE FACIAL DROOP, L SIDE WEAKNESS (ARM AD LEG) +R HAND CORE PILER, PT IS ABLE TO MOVE R LEG. NO EDEMA NOTED. PT IS AWARE OF PLAN OF CARE.
--- NOTE | 2023-05-21 08:07 | PC.NURSE ---
PT TO MRI VIA STRETCHER.
[2023-05-21] MEDS: NIFEdipine ER 60 MG TAB.ER.24 PO (08:24)
[2023-05-21] MEDS: Fluticasone/Vilanterol 200/25 BLST.W.DEV 1 PUFF INHALE (08:24)
--- NOTE | 2023-05-21 08:26 | PC.NURSE ---
DR. COOL AT BEDSIDE PT IS AWARE OF PLAN OF CARE.
--- NOTE | 2023-05-21 08:30 | PC.NURSE ---
PT TO HAVE MRI, BUT PT IS STATING THAT SHE HAS A HEART MONITOR WHICH IS NOT VISIBLE TO THE EYE. MRI (RORO) STATES THAT SHE WILL CALL [facility] TO INQUIRE ABOUT DEVICE.
--- NOTE | 2023-05-21 09:06 | MHC.CM.PN ---
CM spoke with Patient's Daughter/HCP/[employer]/Evelyn @ [phone]. Patient lives alone in an apartment and uses both a cane and a walker to assist with mobility. Patient is active with a VNA([facility]D [facility] FOR BP CHECKS)(Daughter cannot recall the name of the VNA), has [employer] hours/week, and home dialysis. Home/resume said services vs STR pending PT eval is the tentative plan and FRANCES has initiated and will follow for dc planning. PCP/PA is Monique Quezada at [facility] in [facility].
--- NOTE | 2023-05-21 09:15 | PM.DS ---
DS: Providers Provider Date of Service: 05/21/23 Date of admission: 05/20/23 22:23 Date of discharge: 05/21/23 Primary care physician: Unknown Physician Consults: 05/20/23 22:23 Consult to Neurology Routine Consulting Provider: [facility] Reason for consultation: stroke Has provider been notified: No 05/21/23 06:39 Consult to Nephrology Routine Consulting Provider: [facility] Reason for consultation: hyponatremia, paritoneal dialysis Has provider been notified: Yes 05/21/23 06:40 Consult to Vascular Surgery Routine Consulting Provider: [facility] Reason for consultation: 70 ICA occlusion, recurrent CVA Has provider been notified: No Attending physician on discharge: Eliecer German Discharging clinician: Luann Yoon DS: Diagnosis Discharge Diagnosis (1) Acute CVA (cerebrovascular accident): Status: Acute (2) New onset seizure: Status: Acute (3) Acute hyponatremia: Status: Acute (4) ESRD on peritoneal dialysis: Status: Acute (5) Acute UTI: Status: Acute DS: Summary Hospital Course Hospital Course: From H&P on day of admission 63-year-old female with past medical history of chronic hep C recently diagnosed liver cancer,? end-stage renal disease status post peritoneal dialysis every other day at home, history of? CVA in the past, diabetes, GERD, HLD,? hypothyroidism, lupus, normocytic anemia, uncontrolled hypertension comes into the hospital brought in? by EMS for left-sided weakness, slurred speech and facial droop.? Patient is awake, oriented to self and place, daughter and son at bedside.? Patient states that around 18:00 she started developing right-sided facial droop,? significant left-sided headache behind her left ear,difficulty speaking, she also developed left upper extremity weakness.? She called her daughter, daughter says that she was unable to understand her much, she went home and she was concerned about a stroke in called EMS.? While in the ED patient experienced a tonic-clonic seizure, was given Ativan, and was slightly postictal for a period of time, but is now awake alert and able to give history. ? She otherwise denies any? chest pain, no vision changes, no shortness of breath, no abdominal pain nausea vomiting, no diarrhea constipation, no? urinary symptoms On arrival to the ED patient initially hypotensive but blood pressure has now increased significantly Labs are significant for WBC count of 7.1, hemoglobin of 10.7, hematocrit 29.9, INR of 2.8, sodium of 126, creatinine of 2.99 which is around her baseline, UA positive for leukocyte Estrace and WBC ?head CT shows multiple age indeterminate hypodensities that are new compared to 2019, largest in the high right parietal lobe and left paramedian occipital lobe, smaller age indeterminate hypodensities in the mid shelbi and bilateral basal ganglia no acute intracranial hemorrhage, no midline shift or evidence of obstructive hydrocephalus ?head and neck CT angiogram shows chronic encephalomalacia within the right parietal lobe, lacunar infarct of the left central shelbi, moderate to extensive underlying microangiopathy and generalized cerebral volume loss, no proximal occlusion, 70% stenosis of the origin of the right ICA acute CVA exam c/w stroke. Brain ct with Multiple age indeterminate hypodensities that are new compared to 12/27/2018, largest in the high right parietal lobe and left paramedian occipital lobe. Smaller age indeterminate hypodensities in the mid shelbi and bilateral basal ganglia. Recommend further characterization with an MRI of the brain. MRI pending; continue high-dose statin,? warfarin, as well as aspirin. LDL 101 awaiting MRI of brain, neurology evaluation, PT/OT evaluation #? new onset seizure h/o underlying CVA as well as hyponatremia. reportedly had generalized seizure in the ED shortly after arrival. denies previous history of seizure. received Ativan and keppra load with no recurrence of seizure at this time. -? neurology consulted, EEG ordered but still pending at this time #? acute hyponatremia sodium 126 on arrival. patient given 3% NS 70cc per Nephrology with improvement in sodium to 129, repeat at 9am 130. urine studies pending #? 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 as seen on CTA -? vascular surgery consultation pending # ? ESRD on PD -? nephrology consulted - unable to get PD in hospital - will need transfer to tertiary care facility for dialysis #? diabetes -? low-dose sliding scale insulin, diabetic diet, home insulin #? uncontrolled hypertension patient's blood pressure in the 200s -? nephrology consulted #? recent diagnosis of liver cancer -? family were informed about 2 weeks ago that there is concern for liver cancer but reportedly she is not a candidate for biopsy - records pending -? follow-up outpatient # ? History of CHF with preserved ejection fraction -? not in exacerbation -? continue torsemide Time Spent with Patient Time attestation: Total time managing care of this patient today ____ minutes. Discharge coordination time: Greater than 30 minutes Quality: Safe Use of Opioids Does Pt have an Active Cancer Diagnosis on the Problem List?: No Quality: Stroke Does the patient have a stroke diagnosis?: No Physical Exam Vital Signs: Vital Signs: Last Vital Signs Temp 97.5 F 05/21/23 07:25 Pulse 75 05/21/23 08:38 Resp 14 05/21/23 08:38 BP 185/71 H 05/21/23 08:38 Pulse Ox 100 05/21/23 08:38 O2 Del Method Room Air 05/21/23 08:38 BMI result Body Mass Index 29.6 Const: General: cooperative, comfortable, no acute distress, alert and awake Nutritional Appearance: average body habitus Orientation/consciousness: patient oriented x3 Resp: Effort & Inspection: normal respiratory effort, able to speak in complete sentences, no respiratory distress and no use of accessory muscles Auscultation: clear to auscultation bilaterally Cardio: Rate: regular rate Heart sounds: S1 normal heart sound present and S2 normal heart sound present GI: Inspection: No distended Palpation (GI): Soft to palpation and nontender Skin: Other: warm/dry Neuro: Other: right facial droop 3/5 left side weakness General: patient oriented x3 Motor exam (neuro): no tremor noted Extrem: General: Yes no pedal edema DS: Data Data Completed and Pending Labs on day of discharge: Laboratory Results - last 24 hr 05/20/23 05/20/23 05/20/23 18:50 18:57 18:57 WBC 7.1 RBC 3.52 L Hgb 10.7 L Hct 29.9 L MCV 84.9 MCH 30.4 MCHC 35.8 H RDW 11.8 Plt Count 224 MPV 11.5 Immature Gran % (Auto) 0.6 H Neut % (Auto) 68.2 Lymph % (Auto) 18.9 L [place] % (Auto) 9.5 Eos % (Auto) 2.2 Baso % (Auto) 0.6 Lymph # (Auto) 1.4 [place] # (Auto) 0.7 Eos # (Auto) 0.2 Baso # (Auto) 0.0 Abs Immat Gran (auto) 0.04 H Absolute Neuts (auto) 4.9 Absolute Nucleated RBC 0.000 Nucleated RBC % (auto) 0.0 PT INR APTT Sodium 126 L Potassium 4.4 Chloride 100 Carbon Dioxide 19 L Anion Gap 11 L BUN 31 H Creatinine 3.10 H Estim Creat Clear Calc TNP Estimated GFR 15 POC Glucose 157 H Random Glucose 157 H Calcium 8.7 Phosphorus 3.8 Magnesium 1.9 Triglycerides Cholesterol LDL Cholesterol, Calc HDL Cholesterol Urine Color Urine Appearance Urine pH Ur Specific [place] Urine Protein Urine Glucose (UA) Urine Ketones Urine Blood Urine Nitrite Ur Leukocyte Esterase Urine RBC Urine WBC Ur Squamous Epith Cells Urine Bacteria Hyaline Casts Ur Random Sodium 05/20/23 05/20/23 05/20/23 18:57 20:03 23:16 WBC RBC Hgb Hct MCV MCH MCHC RDW Plt Count MPV Immature Gran % (Auto) Neut % (Auto) Lymph % (Auto) [place] % (Auto) Eos % (Auto) Baso % (Auto) Lymph # (Auto) [place] # (Auto) Eos # (Auto) Baso # (Auto) Abs Immat Gran (auto) Absolute Neuts (auto) Absolute Nucleated RBC Nucleated RBC % (auto) PT 34.4 H INR 2.8 H APTT 42.2 H Sodium 126 L Potassium 4.4 Chloride 100 Carbon Dioxide 19 L Anion Gap 11 L BUN 31 H Creatinine 2.99 H Estim Creat Clear Calc 18.5 Estimated GFR 16 POC Glucose Random Glucose 182 H 179 H Calcium 8.3 L Phosphorus Magnesium Triglycerides Cholesterol LDL Cholesterol, Calc HDL Cholesterol Urine Color Urine Appearance Urine pH Ur Specific [place] Urine Protein Urine Glucose (UA) Urine Ketones Urine Blood Urine Nitrite Ur Leukocyte Esterase Urine RBC Urine WBC Ur Squamous Epith Cells Urine Bacteria Hyaline Casts Ur Random Sodium 05/21/23 05/21/23 05/21/23 00:40 05:05 05:05 WBC 5.8 RBC 3.38 L Hgb 10.2 L Hct 28.9 L MCV 85.5 MCH 30.2 MCHC 35.3 H RDW 11.6 Plt Count 162 D MPV 11.7 Immature Gran % (Auto) 0.3 Neut % (Auto) 69.1 Lymph % (Auto) 19.2 L [place] % (Auto) 9.4 Eos % (Auto) 1.7 Baso % (Auto) 0.3 Lymph # (Auto) 1.1 L [place] # (Auto) 0.5 Eos # (Auto) 0.1 Baso # (Auto) 0.0 Abs Immat Gran (auto) 0.02 Absolute Neuts (auto) 4.0 Absolute Nucleated RBC 0.000 Nucleated RBC % (auto) 0.0 PT INR APTT Sodium 128 L Potassium 4.3 Chloride 100 Carbon Dioxide 21 L Anion Gap 11 L BUN 31 H Creatinine 3.06 H Estim Creat Clear Calc 18.1 Estimated GFR 16 POC Glucose Random Glucose 172 H Calcium 8.4 Phosphorus Magnesium Triglycerides 115 Cholesterol 157 LDL Cholesterol, Calc 101 H HDL Cholesterol 33 L Urine Color Urine Appearance Urine pH Ur Specific [place] Urine Protein Urine Glucose (UA) Urine Ketones Urine Blood Urine Nitrite Ur Leukocyte Esterase Urine RBC Urine WBC Ur Squamous Epith Cells Urine Bacteria Hyaline Casts Ur Random Sodium 05/21/23 05/21/23 05/21/23 05:05 05:23 06:57 WBC RBC Hgb Hct MCV MCH MCHC RDW Plt Count MPV Immature Gran % (Auto) Neut % (Auto) Lymph % (Auto) [place] % (Auto) Eos % (Auto) Baso % (Auto) Lymph # (Auto) [place] # (Auto) Eos # (Auto) Baso # (Auto) Abs Immat Gran (auto) Absolute Neuts (auto) Absolute Nucleated RBC Nucleated RBC % (auto) PT INR APTT Sodium 129 L Potassium 4.3 Chloride 102 Carbon Dioxide 21 L Anion Gap 10 L BUN 34 H Creatinine 3.17 H Estim Creat Clear Calc 17.4 Estimated GFR 15 POC Glucose 104 Random Glucose 114 Calcium 8.4 Phosphorus Magnesium Triglycerides Cholesterol LDL Cholesterol, Calc HDL Cholesterol Urine Color Yellow Urine Appearance Cloudy Urine pH 6.5 Ur Specific [place] 1.015 Urine Protein 100 (2+) H Urine Glucose (UA) Negative Urine Ketones Negative Urine Blood Negative Urine Nitrite Negative Ur Leukocyte Esterase Moderate (2+) H Urine RBC 3-5 H Urine WBC 11-20 H Ur Squamous Epith Cells 0-2 Urine Bacteria 4+ Hyaline Casts 0-2 Ur Random Sodium 05/21/23 08:54 WBC RBC Hgb Hct MCV MCH MCHC RDW Plt Count MPV Immature Gran % (Auto) Neut % (Auto) Lymph % (Auto) [place] % (Auto) Eos % (Auto) Baso % (Auto) Lymph # (Auto) [place] # (Auto) Eos # (Auto) Baso # (Auto) Abs Immat Gran (auto) Absolute Neuts (auto) Absolute Nucleated RBC Nucleated RBC % (auto) PT INR APTT Sodium Potassium Chloride Carbon Dioxide Anion Gap BUN Creatinine Estim Creat Clear Calc Estimated GFR POC Glucose Random Glucose Calcium Phosphorus Magnesium Triglycerides Cholesterol LDL Cholesterol, Calc HDL Cholesterol Urine Color Urine Appearance Urine pH Ur Specific [place] Urine Protein Urine Glucose (UA) Urine Ketones Urine Blood Urine Nitrite Ur Leukocyte Esterase Urine RBC Urine WBC Ur Squamous Epith Cells Urine Bacteria Hyaline Casts Ur Random Sodium 28.0 Imaging MRI - head: Radiologist's impression: ITS Impressions Head CT 05/20/23 18:58 IMPRESSION: 1. Multiple age indeterminate hypodensities that are new compared to 12/27/2018, largest in the high right parietal lobe and left paramedian occipital lobe. Smaller age indeterminate hypodensities in the mid shelbi and bilateral basal ganglia. Recommend further characterization with an MRI of the brain. 2. No acute intracranial hemorrhage. 3. No midline shift or evidence of obstructive hydrocephalus. 4. Background of moderate microangiopathy and generalized cerebral volume loss. This critical result was discussed with Dr. Stafford at 05/20/2023 7:21 PM and it was ascertained that the content and urgency of the report was understood at the time of direct communication. Head/Neck CTA 05/20/23 19:26 IMPRESSION: 1. Chronic encephalomalacia within the right parietal lobe. Lacunar infarct of the left central shelbi. Moderate to extensive underlying microangiopathy and generalized cerebral volume loss. 2. No evidence of acute intracranial hemorrhage or edematous territorial infarction. 3. CTA of the head and neck without proximal occlusion. 4. Calcific atherosclerotic disease causes 70% stenosis of the origin of the right ICA. There is 50% stenosis of the origin of the left ICA. Mild to moderate calcific atherosclerotic disease of the intracranial internal carotid arteries bilaterally without evidence of additional flow-limiting stenosis. Moderate atherosclerotic stenoses of the origins of the vertebral arteries bilaterally. Brain MRI 05/21/23 10:00 IMPRESSION: 1. There are sequelae of subacute to chronic infarcts in the right periventricular white matter and precentral gyrus as described above. There is diffuse volume loss and there are sequelae of chronic microvascular ischemic changes. There are chronic infarcts in the left occipital lobe and in the bilateral cerebellar hemispheres. 2. There are no acute bleeds or new territorial infarcts. No masses are demonstrated. Discharge Plan Discharge Anticipated Discharge Date/Time: 05/21/23 09:03 Patient Disposition: Xfer Acute Care Hospital Discharge Diagnosis: acute stroke hyponatremia new onset seizure Referrals: Physician,Unknown J [Primary Care Provider] - 1 Week Discharge Medications: Continued atorvastatin 80 mg tablet 80 mg PO MOWEFR carvedilol 25 mg tablet 25 mg PO BID sennosides [senna] 8.6 mg tablet 8.6 mg PO DAILY PRN (Reason: Constipation) torsemide 20 mg tablet 20 mg PO BID isosorbide mononitrate 30 mg tablet extended release 24 hr 90 mg PO DAILY warfarin 2.5 mg tablet 7.5 mg PO SUMOTUTHFRSA aspirin 81 mg tablet,delayed release (DR/EC) 81 mg PO DAILY pantoprazole 20 mg tablet,delayed release (DR/EC) 20 mg PO DAILY@0630 PRN (Reason: Acid Reflux) trazodone 100 mg tablet 100 mg PO BEDTIME PRN (Reason: insomnia) calcitriol 0.5 mcg capsule 0.5 mcg PO MOWEFR ergocalciferol (vitamin D2) 1,250 mcg (50,000 unit) capsule 1,250 mcg PO MO nifedipine 60 mg tablet extended release 60 mg PO BID cinacalcet 30 mg tablet 30 mg PO MOWEFR budesonide-formoterol [Symbicort] 160-4.5 mcg/actuation HFA aerosol inhaler 2 puff inhalation BID insulin glargine [Lantus Solostar U-100 Insulin] 100 unit/mL (3 mL) insulin pen 15 unit subcut BEDTIME Victoza 2-Freddie 0.6 mg/0.1 mL (18 mg/3 mL) pen injector 1.2 mg subcut DAILY warfarin 2.5 mg tablet 10 mg PO WE Discharge Orders: Discharge Order (Routine); Ordered 05/21/23 Ordered By: Luann Yoon Activity on Discharge: As tolerated Stand Alone Forms: Patient Portal Discharge page Care Plan Goals: transfer to tertiary care facility for further management Health Concerns: probable acute stroke new onset seizure hyponatremia uncontrolled blood pressure carotid stenosis - rec vascular evaluation Plan of Treatment: transfer for further work up Assessment: probable stroke. transfer to tertiary care facility for further workup of hyponatremia, new onset seizure, eval for possible acute stroke and to continue peritoneal dialysis
--- NOTE | 2023-05-21 09:21 | PC.NURSE ---
DDR. PAZ (RNEAL) AT BEDSIDE, PT AWARE OF PLAN OF CARE.
[2023-05-21 09:23] LABS: Osmolality Urine 185 mosm/kg (373-1093)
--- NOTE | 2023-05-21 09:31 | P.CONGS_ITS ---
History of Present Illness Consult details Consult date: 05/21/23 Reason for consult: other (Carotid stenosis with stroke.) Narrative: Pleasant 63-year-old female who originally presented to the hospital will with left arm and leg weakness. She notice this at home and subsequently called her family and was brought in by EMS. She had a workup including CT scan of head and CT angiogram of neck. It demonstrated high-grade right carotid stenosis. Currently still in the emergency room. She does report some left arm tingling but overall appears to be doing much better. We are waiting MRI. Review of Systems 2 Review of Systems: Yes all other systems are reviewed and are negative Constitutional: Constitutional: Reports no additional constitutional complaints ENT: Reports Normal hearing present Cardiovascular: Cardiovascular: Denies chest pain, Denies chest pain at rest, Denies chest pain with activity and Denies pedal edema Respiratory: Respiratory: Denies cough Gastrointestinal: Gastrointestinal: Denies abdominal pain Musculoskeletal: Musculoskeletal: Denies abnormal gait, Denies muscle cramps and Denies radiating pain into limb Integumentary/Breasts: Skin/Breast: Denies skin ulcer and Denies wounds Neurologic: Reports Normal hearing present and Denies abnormal gait Psychiatric: Psychiatric: Reports no additional psychiatric complaints PMFSH Past Medical History Medical History Chronic anemia Diabetes Embolic stroke Esophageal varices ESRD (end stage renal disease) H/O insulin dependent diabetes mellitus Heart failure with preserved ejection fraction Hepatitis C History of CAD (coronary artery disease) History of hypertrophic cardiomyopathy Hyperlipidemia Hypothyroidism Liver cancer Liver cirrhosis Lupus anticoagulant positive Peritoneal dialysis catheter in place Uncontrolled hypertension Social History Social History Alcohol intake: never Patient Tobacco Use Status: Former Tobacco user Smoked in Last 30 Days: No Use of substances other than those prescribed or required for medical reasons: No Advance Directives: No Advance Directives Information Provided: No Patient : No service: No Meds Allergies Allergy/AdvReac Type Severity Reaction Status Date / Time No Known Allergies Allergy Mild NONE Unverified 06/14/20 16:40 Active Medications: Current Medications Acetaminophen (Acetaminophen 325 Mg Tablet) 650 mg PO Q6H PRN PRN Reason: Pain, Mild (Pain Scale 1-3) Aspirin (Aspirin Enteric Coated 81 Mg Tablet.Dr) 81 mg PO DAILY [facility] Last Admin: 05/21/23 07:42 Dose: 81 mg Atorvastatin Calcium (Atorvastatin Calcium 80 Mg Tablet) 80 mg PO MOWEFR [facility] Calcitriol (Calcitriol 0.25 Mcg Capsule) 0.5 mcg PO MOWEFR [facility] Carvedilol (Carvedilol 25 Mg Tablet) 25 mg PO BID [facility]; Protocol Last Admin: 05/21/23 07:42 Dose: 25 mg Cinacalcet (Cinacalcet Hcl 30 Mg Tablet) 30 mg PO MOWEFR [facility] Dextrose (Dextrose 50 % 25 Gm/50 Ml Syringe) 25 gm IVPUSH Q15M PRN; Protocol PRN Reason: per Hypoglycemia Standing Ord. Docusate Sodium (Docusate Sodium 100 Mg Capsule) 100 mg PO DAILY PRN PRN Reason: Constipation Ergocalciferol (Ergocalciferol (Vitamin D2) 1,250 Mcg Capsule) 1,250 mcg PO MO [facility] Fluticasone/Vilanterol (Fluticasone/Vilanterol 200/25 Blst.W.Dev) 1 puff INHALE RDAILY [facility] Last Admin: 05/21/23 08:24 Dose: 1 puff Glucose (Glucose Gel 15 Gm Gel..Gram.) 15 gm PO Q15M PRN; Protocol PRN Reason: per Hypoglycemia Standing Ord. Ceftriaxone Sodium 1 gm/ (Sodium Chloride) 50 mls @ 100 mls/hr IV Q24H [facility] Last Admin: 05/21/23 07:43 Dose: 100 mls/hr Sodium Chloride (Ns) 1,000 mls @ 80 mls/hr IVCONT .[id number] [facility] Last Admin: 05/21/23 07:44 Dose: 80 mls/hr Insulin Glargine (Insulin Glargine,Hum.Rec.Anlog 100 Unit/Ml 10 Ml Vial) 15 unit SUBCUT BEDTIME [facility] Insulin Human Lispro (Insulin Lispro 100 Unit/Ml 3 Ml Vial) 0 unit SUBCUT QIDACHS [facility]; Protocol Last Admin: 05/21/23 07:44 Dose: Not Given Isosorbide Mononitrate (Isosorbide Mononitrate 30 Mg Tab.Er.24h) 90 mg PO DAILY [facility]; Protocol Last Admin: 05/21/23 07:42 Dose: 90 mg Nifedipine (Nifedipine Er 60 Mg Tab.Er.24) 60 mg PO BID [facility] Last Admin: 05/21/23 08:24 Dose: 60 mg Omeprazole (Omeprazole 20 Mg Capsule.) 20 mg PO DAILY@0630 [facility] Ondansetron HCl (Ondansetron Hcl 4 Mg/2 Ml Vial) 4 mg IVPUSH Q8H PRN PRN Reason: Nausea and Vomiting Senna (Sennosides 8.6 Mg Tablet) 8.6 mg PO DAILY PRN PRN Reason: Constipation Torsemide (Torsemide 20 Mg Tablet) 20 mg PO BID [facility]; Protocol Last Admin: 05/21/23 07:42 Dose: 20 mg Trazodone HCl (Trazodone Hcl 100 Mg Tablet) 100 mg PO BEDTIME PRN PRN Reason: insomnia Warfarin Sodium (Warfarin Sodium 7.5 Mg Tablet) 7.5 mg PO SuMoTuThFrSa@1800 [facility] Warfarin Sodium (Warfarin Sodium 10 Mg Tablet) 10 mg PO We@1800 [facility] Home Medications Medication Instructions Recorded Confirmed Last Taken Type aspirin 81 mg tablet,delayed 81 mg PO DAILY 05/20/23 05/20/23 Unknown History release atorvastatin 80 mg tablet 80 mg PO MOWEFR 05/20/23 05/20/23 Unknown History budesonide-formoterol HFA 160 2 puff inhalation BID 05/20/23 05/20/23 Unknown History mcg-4.5 mcg/actuation aerosol inhaler (Symbicort) calcitriol 0.5 mcg capsule 0.5 mcg PO MOWEFR 05/20/23 05/20/23 Unknown History carvedilol 25 mg tablet 25 mg PO BID 05/20/23 05/20/23 Unknown History cinacalcet 30 mg tablet 30 mg PO MOWEFR 05/20/23 05/20/23 Unknown History ergocalciferol (vitamin D2) 1,250 1,250 mcg PO MO 05/20/23 05/20/23 Unknown History mcg (50,000 unit) capsule insulin glargine 100 unit/mL (3 15 unit subcut BEDTIME 05/20/23 05/20/23 Unknown History mL) subcutaneous pen (Lantus Solostar U-100 Insulin) isosorbide mononitrate 30 mg 90 mg PO DAILY 05/20/23 05/20/23 Unknown History tablet,extended release 24 hr liraglutide 0.6 mg/0.1 mL (18 mg/3 1.2 mg subcut DAILY 05/20/23 05/21/23 Unknown History mL) subcutaneous pen injector (Victoza 2-Freddie) nifedipine 60 mg tablet,extended 60 mg PO BID 05/20/23 05/20/23 Unknown History release pantoprazole 20 mg tablet,delayed 20 mg PO DAILY@0630 PRN Acid Reflux 05/20/23 05/21/23 Unknown History release sennosides 8.6 mg tablet (senna) 8.6 mg PO DAILY PRN Constipation 05/20/23 05/20/23 Unknown History torsemide 20 mg tablet 20 mg PO BID 05/20/23 05/20/23 Unknown History trazodone 100 mg tablet 100 mg PO BEDTIME PRN insomnia 05/20/23 05/20/23 Unknown History warfarin 2.5 mg tablet 7.5 mg PO SUMOTUTHFRSA 05/20/23 05/20/23 Unknown History warfarin 2.5 mg tablet 10 mg PO WE 05/20/23 05/20/23 Unknown History Physical Exam Vital Signs: Vital Signs: Last Vital Signs Temp 97.5 F 05/21/23 07:25 Pulse 75 05/21/23 08:38 Resp 14 05/21/23 08:38 BP 185/71 H 05/21/23 08:38 Pulse Ox 100 05/21/23 08:38 O2 Del Method Room Air 05/21/23 08:38 BMI result Body Mass Index 29.6 Const: General: cooperative, healthy appearing and comfortable Orientation/consciousness: oriented to person, oriented to place and oriented to time HEENT: Head: Yes normal to inspection Neck: Neck: Yes normal visual inspection Carotids: no bruits Chest: Chest palpation & inspection: normal inspection of the chest Resp: Effort & Inspection: normal respiratory effort and able to speak in complete sentences Auscultation: clear to auscultation bilaterally, no crackles, no rales, no rhonchi and no wheezes Cardio: Rate: regular rate Rhythm: regular rhythm Heart sounds: S1 normal heart sound present and S2 normal heart sound present Bruits: no carotid bruits Peripheral pulses: Peripheral pulses 2+ throughout GI: Inspection: Yes normal to inspection Skin: Wounds: no wounds Hair: normal Neuro: General: oriented to person, oriented to place and oriented to time Cranial nerves: Yes CN's II-XII intact bilaterally and Yes Normal hearing present Cognition (Neuro): normal cognition Motor exam (neuro): 5/5 motor strength present throughout Extrem: Other: venous exam: No significant superficial varicosities or spider telangiectasias, minimal edema General: No clubbing, No cyanosis and No edema Psych: Appearance: grossly normal Mental Status: mental status grossly normal Speech and movement: Normal speech and movement present Results Labs 05/21/23 05:05 05/21/23 05:05 Labs: Abnormal lab results 05/20/23 05/20/23 05/20/23 Range/Units 18:50 18:57 18:57 RBC 3.52 L (4.20-5.50) X10*6/uL Hgb 10.7 L (12.0-16.0) g/dl Hct 29.9 L (37.0-47.0) % MCHC 35.8 H (31.0-35.0) g/dl Immature Gran % (Auto) 0.6 H (0.0-0.4) % Lymph % (Auto) 18.9 L (20-40) % Lymph # (Auto) (1.2-4.9) X10*3/uL Abs Immat Gran (auto) 0.04 H (0.00-0.03) X10*3/uL PT (11.1-13.3) SEC INR (0.9-1.1) APTT (26.0-36.4) SEC Sodium 126 L (135-145) mmol/L Carbon Dioxide 19 L (22-29) mmol/L Anion Gap 11 L (12-20) BUN 31 H (9-16) mg/dL Creatinine 3.10 H (0.5-1.4) mg/dL POC Glucose 157 H (60-115) mg/dL Random Glucose 157 H (60-115) mg/dL Calcium (8.4-10.2) mg/dL LDL Cholesterol, Calc (<100) mg/dL HDL Cholesterol (>40) mg/dL Urine Protein (Neg-Trace) mg/dL Ur Leukocyte Esterase (Negative) Urine RBC (0-2) /HPF Urine WBC (0-5) /HPF Urine Osmolality (373-1093) mosm/kg 05/20/23 05/20/23 05/20/23 Range/Units 18:57 20:03 23:16 RBC (4.20-5.50) X10*6/uL Hgb (12.0-16.0) g/dl Hct (37.0-47.0) % MCHC (31.0-35.0) g/dl Immature Gran % (Auto) (0.0-0.4) % Lymph % (Auto) (20-40) % Lymph # (Auto) (1.2-4.9) X10*3/uL Abs Immat Gran (auto) (0.00-0.03) X10*3/uL PT 34.4 H (11.1-13.3) SEC INR 2.8 H (0.9-1.1) APTT 42.2 H (26.0-36.4) SEC Sodium 126 L (135-145) mmol/L Carbon Dioxide 19 L (22-29) mmol/L Anion Gap 11 L (12-20) BUN 31 H (9-16) mg/dL Creatinine 2.99 H (0.5-1.4) mg/dL POC Glucose (60-115) mg/dL Random Glucose 182 H 179 H (60-115) mg/dL Calcium 8.3 L (8.4-10.2) mg/dL LDL Cholesterol, Calc (<100) mg/dL HDL Cholesterol (>40) mg/dL Urine Protein (Neg-Trace) mg/dL Ur Leukocyte Esterase (Negative) Urine RBC (0-2) /HPF Urine WBC (0-5) /HPF Urine Osmolality (373-1093) mosm/kg 05/21/23 05/21/23 05/21/23 Range/Units 00:40 05:05 05:05 RBC 3.38 L (4.20-5.50) X10*6/uL Hgb 10.2 L (12.0-16.0) g/dl Hct 28.9 L (37.0-47.0) % MCHC 35.3 H (31.0-35.0) g/dl Immature Gran % (Auto) (0.0-0.4) % Lymph % (Auto) 19.2 L (20-40) % Lymph # (Auto) 1.1 L (1.2-4.9) X10*3/uL Abs Immat Gran (auto) (0.00-0.03) X10*3/uL PT (11.1-13.3) SEC INR (0.9-1.1) APTT (26.0-36.4) SEC Sodium 128 L (135-145) mmol/L Carbon Dioxide 21 L (22-29) mmol/L Anion Gap 11 L (12-20) BUN 31 H (9-16) mg/dL Creatinine 3.06 H (0.5-1.4) mg/dL POC Glucose (60-115) mg/dL Random Glucose 172 H (60-115) mg/dL Calcium (8.4-10.2) mg/dL LDL Cholesterol, Calc 101 H (<100) mg/dL HDL Cholesterol 33 L (>40) mg/dL Urine Protein (Neg-Trace) mg/dL Ur Leukocyte Esterase (Negative) Urine RBC (0-2) /HPF Urine WBC (0-5) /HPF Urine Osmolality (373-1093) mosm/kg 05/21/23 05/21/23 05/21/23 Range/Units 05:05 05:23 08:54 RBC (4.20-5.50) X10*6/uL Hgb (12.0-16.0) g/dl Hct (37.0-47.0) % MCHC (31.0-35.0) g/dl Immature Gran % (Auto) (0.0-0.4) % Lymph % (Auto) (20-40) % Lymph # (Auto) (1.2-4.9) X10*3/uL Abs Immat Gran (auto) (0.00-0.03) X10*3/uL PT (11.1-13.3) SEC INR (0.9-1.1) APTT (26.0-36.4) SEC Sodium 129 L (135-145) mmol/L Carbon Dioxide 21 L (22-29) mmol/L Anion Gap 10 L (12-20) BUN 34 H (9-16) mg/dL Creatinine 3.17 H (0.5-1.4) mg/dL POC Glucose (60-115) mg/dL Random Glucose (60-115) mg/dL Calcium (8.4-10.2) mg/dL LDL Cholesterol, Calc (<100) mg/dL HDL Cholesterol (>40) mg/dL Urine Protein 100 (2+) H (Neg-Trace) mg/dL Ur Leukocyte Esterase Moderate (2+) H (Negative) Urine RBC 3-5 H (0-2) /HPF Urine WBC 11-20 H (0-5) /HPF Urine Osmolality 185 L (373-1093) mosm/kg Short CBC 05/20/23 05/21/23 Range/Units 18:57 05:05 WBC 7.1 5.8 (4.8-10.8) X10*3/uL Hgb 10.7 L 10.2 L (12.0-16.0) g/dl Hct 29.9 L 28.9 L (37.0-47.0) % Plt Count 224 162 D (160-400) X10*3/uL BMP 05/20/23 05/20/23 05/21/23 18:57 23:16 00:40 Sodium 126 L 126 L 128 L Potassium 4.4 4.4 4.3 Chloride 100 100 100 Carbon Dioxide 19 L 19 L 21 L BUN 31 H 31 H 31 H Creatinine 3.10 H 2.99 H 3.06 H Calcium 8.7 8.3 L 8.4 05/21/23 05:05 Sodium 129 L Potassium 4.3 Chloride 102 Carbon Dioxide 21 L BUN 34 H Creatinine 3.17 H Calcium 8.4 Urine 05/21/23 Range/Units 05:23 Urine Color Yellow Urine Appearance Cloudy Urine pH 6.5 (5.0-9.0) Ur Specific [place] 1.015 (1.005-1.025) Urine Protein 100 (2+) H (Neg-Trace) mg/dL Urine Glucose (UA) Negative (Negative) mg/dL All other labs normal. Imaging Additional studies: CT angiogram of carotids demonstrates right-sided carotid stenosis of 70%. CT of the head is concerning for right parietal and temporal lobe strokes. Assessment and Plan (1) Stroke due to stenosis of right carotid artery: Status: Acute Plan In short patient has carotid stenosis with stroke. The patient will require these stroke to resolve over the next few weeks and will require carotid endarterectomy. She is being maintained on aspirin Coumadin and a statin. Would not add any additional anticoagulants. Will await results of MRI. Patient will require cardiac risk stratification. Time Spent With Patient Time: Total time managing care of this patient today ____ minutes. Procedures Date of Service Date of Service: 05/21/23
--- NOTE | 2023-05-21 09:34 | MHC.CM.PN ---
Patient will be dc/transferred to tertiary hospital.
[2023-05-21 09:40] LABS: INTERNATIONAL NORM RATIO 3.5 (0.9-1.1); Prothrombin Time 42.4 SEC (11.1-13.3)
--- NOTE | 2023-05-21 09:52 | PC.NURSE ---
PT OFF TO MRI VIA STRETCHER.
[2023-05-21 09:57] LABS: Anion Gap 10 (12-20); Blood Urea Nitrogen 35 mg/dL (9-16); Calcium 8.4 mg/dL (8.4-10.2); Carbon Dioxide 21 mmol/L (22-29); Chloride 103 mmol/L (96-108); Estimated Glomerular Filt Rate 14; Glucose Random 121 mg/dL (60-115); Potassium 4.3 mmol/L (3.3-5.1); Sodium 130 mmol/L (135-145)
--- NOTE | 2023-05-21 10:20 | PC.NURSE ---
PT'S DAUGHTER IS AT BEDSIDE. SHE IS AWARE OF PLAN OF CARE.
--- NOTE | 2023-05-21 10:30 | MHC.EDTECH ---
When patient returned from MRI they were found incontinent of urine. Patient was cleaned and patient's linens changed.
--- NOTE | 2023-05-21 10:43 | PM.PNNEP ---
Subjective Subjective Date of Service: 06/22/23 Physical Exam Vital Signs: Vital Signs: Last Vital Signs Temp 98.1 F 05/21/23 10:37 Pulse 75 05/21/23 10:37 Resp 18 05/21/23 10:37 BP 170/96 H 05/21/23 10:37 Pulse Ox 95 05/21/23 10:37 O2 Del Method Room Air 05/21/23 10:37 BMI result Body Mass Index 29.6 Objective Data Labs 05/21/23 05:05 05/21/23 09:20 Labs: Laboratory Results - last 24 hr 05/20/23 05/20/23 05/20/23 18:50 18:57 18:57 WBC 7.1 RBC 3.52 L Hgb 10.7 L Hct 29.9 L MCV 84.9 MCH 30.4 MCHC 35.8 H RDW 11.8 Plt Count 224 MPV 11.5 Immature Gran % (Auto) 0.6 H Neut % (Auto) 68.2 Lymph % (Auto) 18.9 L [place] % (Auto) 9.5 Eos % (Auto) 2.2 Baso % (Auto) 0.6 Lymph # (Auto) 1.4 [place] # (Auto) 0.7 Eos # (Auto) 0.2 Baso # (Auto) 0.0 Abs Immat Gran (auto) 0.04 H Absolute Neuts (auto) 4.9 Absolute Nucleated RBC 0.000 Nucleated RBC % (auto) 0.0 PT INR APTT Sodium 126 L Potassium 4.4 Chloride 100 Carbon Dioxide 19 L Anion Gap 11 L BUN 31 H Creatinine 3.10 H Estim Creat Clear Calc TNP Estimated GFR 15 POC Glucose 157 H Random Glucose 157 H Calcium 8.7 Phosphorus 3.8 Magnesium 1.9 Triglycerides Cholesterol LDL Cholesterol, Calc HDL Cholesterol Urine Color Urine Appearance Urine pH Ur Specific [place] Urine Protein Urine Glucose (UA) Urine Ketones Urine Blood Urine Nitrite Ur Leukocyte Esterase Urine RBC Urine WBC Ur Squamous Epith Cells Urine Bacteria Hyaline Casts Urine Osmolality Ur Random Sodium 05/20/23 05/20/23 05/20/23 18:57 20:03 23:16 WBC RBC Hgb Hct MCV MCH MCHC RDW Plt Count MPV Immature Gran % (Auto) Neut % (Auto) Lymph % (Auto) [place] % (Auto) Eos % (Auto) Baso % (Auto) Lymph # (Auto) [place] # (Auto) Eos # (Auto) Baso # (Auto) Abs Immat Gran (auto) Absolute Neuts (auto) Absolute Nucleated RBC Nucleated RBC % (auto) PT 34.4 H INR 2.8 H APTT 42.2 H Sodium 126 L Potassium 4.4 Chloride 100 Carbon Dioxide 19 L Anion Gap 11 L BUN 31 H Creatinine 2.99 H Estim Creat Clear Calc 18.5 Estimated GFR 16 POC Glucose Random Glucose 182 H 179 H Calcium 8.3 L Phosphorus Magnesium Triglycerides Cholesterol LDL Cholesterol, Calc HDL Cholesterol Urine Color Urine Appearance Urine pH Ur Specific [place] Urine Protein Urine Glucose (UA) Urine Ketones Urine Blood Urine Nitrite Ur Leukocyte Esterase Urine RBC Urine WBC Ur Squamous Epith Cells Urine Bacteria Hyaline Casts Urine Osmolality Ur Random Sodium 05/21/23 05/21/23 05/21/23 00:40 05:05 05:05 WBC 5.8 RBC 3.38 L Hgb 10.2 L Hct 28.9 L MCV 85.5 MCH 30.2 MCHC 35.3 H RDW 11.6 Plt Count 162 D MPV 11.7 Immature Gran % (Auto) 0.3 Neut % (Auto) 69.1 Lymph % (Auto) 19.2 L [place] % (Auto) 9.4 Eos % (Auto) 1.7 Baso % (Auto) 0.3 Lymph # (Auto) 1.1 L [place] # (Auto) 0.5 Eos # (Auto) 0.1 Baso # (Auto) 0.0 Abs Immat Gran (auto) 0.02 Absolute Neuts (auto) 4.0 Absolute Nucleated RBC 0.000 Nucleated RBC % (auto) 0.0 PT INR APTT Sodium 128 L Potassium 4.3 Chloride 100 Carbon Dioxide 21 L Anion Gap 11 L BUN 31 H Creatinine 3.06 H Estim Creat Clear Calc 18.1 Estimated GFR 16 POC Glucose Random Glucose 172 H Calcium 8.4 Phosphorus Magnesium Triglycerides 115 Cholesterol 157 LDL Cholesterol, Calc 101 H HDL Cholesterol 33 L Urine Color Urine Appearance Urine pH Ur Specific [place] Urine Protein Urine Glucose (UA) Urine Ketones Urine Blood Urine Nitrite Ur Leukocyte Esterase Urine RBC Urine WBC Ur Squamous Epith Cells Urine Bacteria Hyaline Casts Urine Osmolality Ur Random Sodium 05/21/23 05/21/23 05/21/23 05:05 05:23 06:57 WBC RBC Hgb Hct MCV MCH MCHC RDW Plt Count MPV Immature Gran % (Auto) Neut % (Auto) Lymph % (Auto) [place] % (Auto) Eos % (Auto) Baso % (Auto) Lymph # (Auto) [place] # (Auto) Eos # (Auto) Baso # (Auto) Abs Immat Gran (auto) Absolute Neuts (auto) Absolute Nucleated RBC Nucleated RBC % (auto) PT INR APTT Sodium 129 L Potassium 4.3 Chloride 102 Carbon Dioxide 21 L Anion Gap 10 L BUN 34 H Creatinine 3.17 H Estim Creat Clear Calc 17.4 Estimated GFR 15 POC Glucose 104 Random Glucose 114 Calcium 8.4 Phosphorus Magnesium Triglycerides Cholesterol LDL Cholesterol, Calc HDL Cholesterol Urine Color Yellow Urine Appearance Cloudy Urine pH 6.5 Ur Specific [place] 1.015 Urine Protein 100 (2+) H Urine Glucose (UA) Negative Urine Ketones Negative Urine Blood Negative Urine Nitrite Negative Ur Leukocyte Esterase Moderate (2+) H Urine RBC 3-5 H Urine WBC 11-20 H Ur Squamous Epith Cells 0-2 Urine Bacteria 4+ Hyaline Casts 0-2 Urine Osmolality Ur Random Sodium 05/21/23 05/21/23 05/21/23 08:54 08:54 09:20 WBC RBC Hgb Hct MCV MCH MCHC RDW Plt Count MPV Immature Gran % (Auto) Neut % (Auto) Lymph % (Auto) [place] % (Auto) Eos % (Auto) Baso % (Auto) Lymph # (Auto) [place] # (Auto) Eos # (Auto) Baso # (Auto) Abs Immat Gran (auto) Absolute Neuts (auto) Absolute Nucleated RBC Nucleated RBC % (auto) PT INR APTT Sodium 130 L Potassium 4.3 Chloride 103 Carbon Dioxide 21 L Anion Gap 10 L BUN 35 H Creatinine 3.25 H Estim Creat Clear Calc 17.0 Estimated GFR 14 POC Glucose Random Glucose 121 H Calcium 8.4 Phosphorus Magnesium Triglycerides Cholesterol LDL Cholesterol, Calc HDL Cholesterol Urine Color Urine Appearance Urine pH Ur Specific [place] Urine Protein Urine Glucose (UA) Urine Ketones Urine Blood Urine Nitrite Ur Leukocyte Esterase Urine RBC Urine WBC Ur Squamous Epith Cells Urine Bacteria Hyaline Casts Urine Osmolality 185 L Ur Random Sodium 28.0 05/21/23 09:20 WBC RBC Hgb Hct MCV MCH MCHC RDW Plt Count MPV Immature Gran % (Auto) Neut % (Auto) Lymph % (Auto) [place] % (Auto) Eos % (Auto) Baso % (Auto) Lymph # (Auto) [place] # (Auto) Eos # (Auto) Baso # (Auto) Abs Immat Gran (auto) Absolute Neuts (auto) Absolute Nucleated RBC Nucleated RBC % (auto) PT 42.4 H D INR 3.5 H APTT Sodium Potassium Chloride Carbon Dioxide Anion Gap BUN Creatinine Estim Creat Clear Calc Estimated GFR POC Glucose Random Glucose Calcium Phosphorus Magnesium Triglycerides Cholesterol LDL Cholesterol, Calc HDL Cholesterol Urine Color Urine Appearance Urine pH Ur Specific [place] Urine Protein Urine Glucose (UA) Urine Ketones Urine Blood Urine Nitrite Ur Leukocyte Esterase Urine RBC Urine WBC Ur Squamous Epith Cells Urine Bacteria Hyaline Casts Urine Osmolality Ur Random Sodium Procedures Date of Service Date of Service: 06/22/23 Assessment & Plan Assessment and plan (1) ESRD (end stage renal disease): Status: Inactive Plan 63-year-old woman with ESRD. She has [id number] hyponatremia. Spoke to Dr. Madera at [facility] and she was being transferred to [facility] for further management of PD. Time Spent With Patient Time: Total time managing care of this patient today ____ minutes. Progress Note: Quality Stroke Does the patient have a stroke diagnosis?: No
[2023-05-21 11:57] LABS: Glucose, Whole Blood 145 mg/dL (60-115)
--- NOTE | 2023-05-21 14:07 | PC.NURSE ---
REPORT GIVEN TO EMS. PT AWARE OF PLAN OF CARE FOR TRANSFER TO [facility] [place], GREG 3, BED 26A. THIS RN CALLED [facility] TO GIVEN RN TO RN REPORT BUT WAS TOLD THAT THE RN IS ON HER LUNCH BREAK.
--- NOTE | 2023-05-21 14:10 | MHC.EDTECH ---
Patient's purewick checked. Cleaned. Patient repositioned to right side and warm blanket given.
--- NOTE | 2023-05-21 14:42 | PC.NURSE ---
[facility] RN RETURNED CALL. RN TO RN REPORT GIVEN TO RORO AT [facility] (GREG 3)
== END 2023-05-21 14:17 | disposition short-term general hospital (02) | DRG 45 ==
LOC: HO.ED 22:24 → HO.EDOVER 22:37
PROVIDERS: Nurse Practitioner Family; Admitting Provider Internal Medicine; Emergency Provider Emergency Medicine; PCP Physician Assistant; Visit Provider Physician Assistant Medical
DX: I63.231 Cerebral infarction due to unspecified occlusion or stenosis of right carotid arteries (principal); I13.2 Hypertensive heart and chronic kidney disease with heart failure and with stage 5 chronic kidney disease, or end stage renal disease; D68.62 Lupus anticoagulant syndrome; N18.6 End stage renal disease; C22.8 Malignant neoplasm of liver, primary, unspecified as to type; K74.60 Unspecified cirrhosis of liver; E87.1 Hypo-osmolality and hyponatremia; R56.9 Unspecified convulsions; I25.10 Atherosclerotic heart disease of native coronary artery without angina pectoris; I50.32 Chronic diastolic (congestive) heart failure; R29.810 Facial weakness; B18.2 Chronic viral hepatitis C; R29.705 NIHSS score 5; Z79.01 Long term (current) use of anticoagulants; Z79.4 Long term (current) use of insulin; Z79.82 Long term (current) use of aspirin; Z79.899 Other long term (current) drug therapy
CPT/HCPCS: 36415; 70450; 70496; 70498; 70551; 80048; 80061; 81001; 82947; 83735; 83935; 84100; 84300; 85025; 85610; 85730; 87040; 87086; 87088; 87186; 93005; 99285; J0696; J1953; J2060; J7131; Q9967

== ENCOUNTER → 2023-05-20 22:23 | Outpatient (BNV) | payer MEDICAID, SELFPAY ==
[2022-01-28 08:32] VITALS: BP 142/80; BP 150/70; BMI 32.0
== END ==
PROVIDERS: Admitting Provider Internal Medicine; Emergency Provider Emergency Medicine; Visit Provider Internal Medicine
DX: I63.9 Cerebral infarction, unspecified (principal); R56.9 Unspecified convulsions; N18.6 End stage renal disease; Z99.2 Dependence on renal dialysis; E87.1 Hypo-osmolality and hyponatremia; N39.0 Urinary tract infection, site not specified; I65.29 Occlusion and stenosis of unspecified carotid artery
CPT/HCPCS: 99223; 99239

== ENCOUNTER → 2023-05-20 22:23 | Outpatient (BNV) | payer MEDICAID, SELFPAY ==
[2022-01-28 08:32] VITALS: BP 142/80; BP 150/70; BMI 32.0
== END ==
PROVIDERS: Admitting Provider Internal Medicine; Emergency Provider Emergency Medicine; Visit Provider Surgery Vascular Surgery
DX: I63.231 Cerebral infarction due to unspecified occlusion or stenosis of right carotid arteries (principal); Z99.2 Dependence on renal dialysis
CPT/HCPCS: 99222